=== PATIENT | male | born 1980 | race African-American/Black ===

== ENCOUNTER → 2021-03-21 | Outpatient (CLI) | payer OTHER ==
--- NOTE | 2021-03-21 13:58 | EKG ---
[place] [address] ELECTROCARDIOGRAM REPORT Name: SANCHEZ SAAVEDRA Room: [facility]#: [id number] Admission: 03/21/21 Attend Phys: Everardo Bronson, Discharge: Date of : 78 Date of Service: 03/21/2156 Report #: [id number] THIS REPORT FOR: //name// [facility] Test Date: 2021-03-21 Test Time: 08:56:36 Pat Name: SANCHEZ SAAVDERA Department: Room: Gender: Technology Coordinator: : 1980 Requested By: Everardo Bronson Order Number: [id number] Suni MD: Kermit Mattson Measurements Intervals [place] Rate: 49 P: 71 [place]: 148 QRS: 78 QRSD: 103 T: 39 QT: 503 QTc: 455 Interpretive Statements Sinus bradycardia with sinus arrhythmia No previous ECG available for comparison Electronically Signed On 03-21-2021 13:58:15 CDT by Kermit Mattson [email or web address] <ELECTRONICALLY SIGNED> By: Kermit Mattson MD, [facility] 03/21/21 [id number] Kermit Mattson MD, FACC /EPI
== END ==
LOC: M.CRD 08:20
PROVIDERS: ATTEND Family Medicine
DX: R00.1 Bradycardia, unspecified (principal)